=== PATIENT | female | born 1990 | race Caucasian/White ===

== ENCOUNTER 2023-04-09 19:02 | Inpatient (IN) | payer BC, SELFPAY ==
[2023-04-09 20:16] VITALS: BP 128/90
[2023-04-09 20:18] LABS: % Basophils 0.1 % (0-2); % Eosinophils 0.5 % (0-6); % Immature Granulocytes 0.8 % (0-0.5); % Lymphocytes 20.3 % (20.5-51.1); % Monocytes 7.4 % (1.7-9.3); % Neutrophils 70.9 % (42.2-75.2); Absolute Immature Granulocytes 0.1 10^3/uL (0-0.05); Absolute Lymphocytes 1.5 10^3/uL (1.2-3.4); Absolute Monocytes 0.6 10^3/uL (0.1-0.6); Absolute Neutrophils 5.3 10^3/uL (1.4-6.5); Hematocrit 34.1 % (37.0-47.0); Hemoglobin 11.6 g/dL (12.0-16.0); Mean Corpuscular Hgb 28.9 pg (27.0-31.0); Mean Corpuscular Volume 84.8 fL (81.0-99.0); Mean Platelet Volume 10.9 fL (7.4-10.4); Nucleated Red Blood Cells % 0 %; Platelet Count 158 10^3/uL (130-400); Red Blood Cell Count 4.02 10^6/uL (4.20-5.40); Red Cell Dist. Width 12.9 % (11.5-14.5); White Blood Cell Count 7.5 10^3/uL (4.8-10.8)
[2023-04-09] MEDS: CYTOTEC 25 MICROGRAM VAG (20:55)
[2023-04-10] MEDS: LR 1000 IV ×2 (00:57→05:22)
[2023-04-10] MEDS: MORPHINE SULFATE 2 MG IV ×3 (01:08→05:34)
[2023-04-10] MEDS: CYTOTEC 50 MICROGRAM PO ×2 (01:30→05:22)
[2023-04-10] MEDS: SUBLIMAZE 100 MCG EPIDURAL (07:35)
[2023-04-10] MEDS: FENTANYL/BUPIVACAINE 100 EPIDURAL (07:35)
[2023-04-10] MEDS: PITOCIN 30 UNITS/NSS 500 ML IV (09:40)
[2023-04-10] MEDS: ZOFRAN 4 MG IV (11:58)
[2023-04-10] MEDS: MOTRIN 600 MG PO ×2 (14:14→20:26)
[2023-04-10] MEDS: TYLENOL 650 MG PO ×2 (16:42→22:49)
[2023-04-10] MEDS: AMOXIL 500 MG PO (22:05)
[2023-04-11] MEDS: MOTRIN 600 MG PO ×4 (02:26→22:02)
[2023-04-11] MEDS: TYLENOL 650 MG PO ×2 (04:51→18:51)
[2023-04-11 05:36] LABS: Hematocrit 30.9 % (37.0-47.0); Hemoglobin 10.5 g/dL (12.0-16.0)
[2023-04-11] MEDS: AMOXIL 500 MG PO ×2 (08:58→19:52)
[2023-04-11] MEDS: PRENATAL PLUS 1 TABLET PO (08:58)
[2023-04-11] MEDS: SENOKOT-S 1 TABLET PO (08:59)
[2023-04-11] MEDS: AFRIN NASAL SPRAY 2 SPRAYS NASAL (19:51)
[2023-04-12] MEDS: TYLENOL 650 MG PO ×2 (00:35→08:18)
[2023-04-12] MEDS: MOTRIN 600 MG PO ×2 (04:42→10:40)
[2023-04-12] MEDS: SENOKOT-S 1 TABLET PO (08:12)
[2023-04-12] MEDS: AMOXIL 500 MG PO (08:12)
[2023-04-12] MEDS: PRENATAL PLUS 1 TABLET PO (08:13)
[2023-04-12] MEDS: AFRIN NASAL SPRAY 30 SPRAYS NASAL (08:13)
[2023-04-13 17:18] LABS: Syphilis/T. pallidum Ab Reflex Negative (Negative)
== END 2023-04-12 14:48 | disposition home or self-care (01) | DRG 807 ==
LOC: LDRP 19:02
PROVIDERS: Obstetrics & Gynecology; ADMITTING PHYSICIAN Obstetrics & Gynecology; FAMILY PHYSICIAN Family Medicine
PROC: 3E0P7VZ Introduction of Hormone into Female Reproductive, Via Natural or Artificial Opening (ICD-10-PCS; 2023-04-09)
PROC: 0HQ9XZZ Repair Perineum Skin, External Approach (ICD-10-PCS; 2023-04-10)
PROC: 10E0XZZ Delivery of Products of Conception, External Approach (ICD-10-PCS; 2023-04-10)
DX: O48.0 Post-term pregnancy (principal); Z37.0 Single live birth; Z3A.40 40 weeks gestation of pregnancy; O70.0 First degree perineal laceration during delivery
CPT/HCPCS: 36415; 85014; 85018; 85025; 86780; 86850; 86900; 86901